=== PATIENT | female | born 1935 | race Caucasian/White ===

== ENCOUNTER → 2016-11-25 | Outpatient (CLI) | payer OTHER ==
[~2016-11-25] MED LIST: AMOXICILLIN 50500 M1 PO; B COMPLEX-VITA1 EACH PO; NORCO 5-325 TA1 EACH PO; PROTONIX 20 MG20 M1 PO; SALINE360 M1 OP; SYNTHROID50 MCG PO; ZYRTEC10 M2 PO
== END ==
LOC: RAD 01:04
DX: Z12.31 Encounter for screening mammogram for malignant neoplasm of breast (principal)

== ENCOUNTER → 2016-12-08 | Outpatient (CLI) | payer OTHER | LOC: BC 04:23 | DX: R92.0 Mammographic microcalcification found on diagnostic imaging of breast (principal) ==

== ENCOUNTER → 2016-12-23 | Outpatient (CLI) | payer OTHER ==
--- NOTE | ~2016-12-23 | S ---
[facility] [place] [address] SURGICAL PATH RPT PROCEDURE Name: NEHAL WHITMORE Room #: [facility].#: [id number] Admission: 12/23/16 Date of : 33 Discharge: Report #: [id number] Path Case #: [id number] PATHOLOGY REPORT COLLECTION DATE: 12/23/2016 RECEIVED DATE: 12/23/2016 SUBMITTING PHYS: Dr. Bert Edward OTHER PHYS: Dr. 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 - Fragments of skeletal muscle present without diagnostic abnormalities. - Fibroadipose connective tissue along with vessels and nerves sampled. - Negative for atypia or malignancy. COMMENT: Co-review: Dr. Mahendra Ferraro PATHOLOGIST: Estelle Tristan M.D. REPORT ELECTRONICALLY SIGNED BY: Estelle Tristan M.D. DATE/TIME: 12/27/2016 15:15 * * * * * * * * * * * * GROSS PATHOLOGY: The specimen is received in formalin labeled "Nehal Whitmore, left," and additionally labeled on the requisition as, "left central posterior". Received are multiple needle cores of yellow-dennison fibrofatty tissue measuring 4.2 x 3.1 x 0.4 cm in aggregate dimensions. Also received is a plastic cassette containing multiple cores of yellow-dennison fibrofatty tissue measuring 2.4 x 2.0 x 0.6 cm in aggregate dimensions. The tissue in the cassette is transferred to cassette A1 and A2, and the remaining tissue is submitted in its entirety in cassette A3 and A4. The cold ischemic time is 4 minutes. The total formalin fixation time is 61 hours. (CAA; 12/26/2016) CLINICAL HISTORY: [facility] [place] [address] SURGICAL PATH RPT PROCEDURE Name: NEHAL WHITMORE Room #: [facility].#: [id number] Admission: 12/23/16 Date of : 33 Discharge: Report #: [id number] Path Case #: [id number] Left breast calcifications INITIAL CPT CODE(S): A; 47058 Professional services performed by [facility] at [address] , [place] [address] Technical services performed by [facility] at [address] [place] [address], [place] [address] [address]. [facility] [place] [address] PHONE: [phone] DIRECTOR: Louis Rubio M.D. * * * END OF REPORT * * *
== END | disposition home or self-care (01) ==
LOC: BC 09:08
DX: N92.0 Excessive and frequent menstruation with regular cycle (principal)

== ENCOUNTER → 2017-06-15 | Outpatient (CLI) | payer OTHER | LOC: RAD 14:41 | DX: R92.8 Other abnormal and inconclusive findings on diagnostic imaging of breast (principal) ==